=== PATIENT | male | born 1955 ===

== ENCOUNTER → 2018-06-26 20:49 | Outpatient (REF) | payer OTHER, SELFPAY ==
[2018-06-26 20:52] LABS: Bacteria Urine None Seen; RBC Urine None Seen (0-5/HPF); WBC Urine None Seen (0-5/HPF)
[2018-06-26 21:26] LABS: Appearance Urine UA CLEAR; Bilirubin Urine UA NEGATIVE (NEGATIVE); Color Urine UA YELLOW; Glucose Urine UA NEGATIVE (Negative); Ketones Urine UA NEGATIVE (NEGATIVE); Leukocyte Esterase Urine UA NEGATIVE (NEGATIVE); Nitrite Urine UA NEGATIVE (Negative); Occult Blood Urine UA NEGATIVE (Negative); Protein Urine UA NEGATIVE (Negative); Specific Gravity Urine UA 1.015 (1.000-1.035); Urobilinogen Urine UA 0.2 E.U./dL (0.2); pH Urine UA 6.5 (4.5-8.0)
[2018-06-26 21:34] LABS: Add Manual Diff / Slide Review NO; Basophils Absolute Auto 0 /uL (0-100); Basophils Percent Auto 1.2 % (0-2); Eosinophils Absolute Auto 100 /uL (0-450); Eosinophils Percent Auto 1.9 % (2-4); Hematocrit 42.9 % (41-53); Hemoglobin 15.1 g/dL (13.5-17.5); Lymphocytes Absolute Auto 800 /uL (1100-4500); Mean Corpuscular HGB Conc 35.2 % (30-36); Mean Corpuscular Hemoglobin 32.8 PG (26-34); Mean Corpuscular Volume 93.2 fL (80-100); Monocytes Absolute Auto 500 /uL (0-900); Monocytes Percent Auto 13.1 % (3-14); Neutrophils Absolute Auto 2200 /uL (1500-7000); Neutrophils Percent Auto 60.8 % (50-75); Platelet Count 214 X10^3/uL (150-400); Red Blood Cell Count 4.61 X10^6/uL (4.5-5.9); Red Cell Distribution Width 13.5 % (11.6-14.8); White Blood Cell Count 3.6 X10^3/uL (4.5-11.0)
[2018-06-26 21:43] LABS: Culture Indicated Urine Cult Not Indicated; Urine Comments Microscopic Normal
[2018-06-26 21:52] LABS: Carbon Dioxide 29 mmol/L (22-32); Chloride 97 mmol/L (98-107); Cholesterol 225 mg/dL (140-199); HDL Cholesterol 70 mg/dL (40-60); HEMOLYSIS < 15 (0-50); LDL Cholesterol Calculated 139 mg/dL (<100); Potassium 4.8 mmol/L (3.4-5.1); Sodium 133 mmol/L (137-145); Triglycerides 78 mg/dL (35-150)
[2018-06-26 21:56] LABS: High Sensitivity CRP - Cardiac 0.4 mg/L (1.0-3.0)
[2018-06-26 22:14] LABS: Free T3, Triiodothyronine Free 4.54 pg/mL (2.77-5.27); T4 Total Thyroxine 6.28 ug/dL (5.5-11.0)
[2018-06-26 22:27] LABS: Thyroid Stimulating Hormone 1.15 uIU/mL (0.47-4.68)
== END ==
LOC: LAB 20:49
PROVIDERS: Visit Provider Naturopath
DX: I10 Essential (primary) hypertension (principal); E03.9 Hypothyroidism, unspecified
CPT/HCPCS: 36415; 80051; 80061; 81001; 84436; 84443; 84481; 85025; 86140